=== PATIENT | female | born 2000 | race Caucasian/White ===

== ENCOUNTER 2023-01-11 15:51 | Outpatient (CLI) | payer OTHER | END 2023-01-11 16:48 | disposition home or self-care (01) | LOC: PRENATAL 15:51 | PROVIDERS: ATTEND Obstetrics & Gynecology Maternal & Fetal Medicine | DX: O36.80X0 Pregnancy with inconclusive fetal viability, not applicable or unspecified (principal); Z36.9 Encounter for antenatal screening, unspecified; Z36.82 Encounter for antenatal screening for nuchal translucency; O99.280 Endocrine, nutritional and metabolic diseases complicating pregnancy, unspecified trimester; Z3A.12 12 weeks gestation of pregnancy ==

== ENCOUNTER 2023-03-08 15:59 | Outpatient (CLI) | payer OTHER | END 2023-03-08 16:47 | disposition home or self-care (01) | LOC: PRENATAL 15:59 | PROVIDERS: ATTEND Obstetrics & Gynecology Maternal & Fetal Medicine | DX: O35.3XX0 Maternal care for (suspected) damage to fetus from viral disease in mother, not applicable or unspecified (principal); O99.280 Endocrine, nutritional and metabolic diseases complicating pregnancy, unspecified trimester; O34.219 Maternal care for unspecified type scar from previous cesarean delivery; O44.00 Complete placenta previa NOS or without hemorrhage, unspecified trimester; Z3A.20 20 weeks gestation of pregnancy ==

== ENCOUNTER → 2023-06-02 10:32 | Outpatient (CLI) | payer OTHER | END | disposition home or self-care (01) | LOC: PRENATAL 10:32 | PROVIDERS: ATTEND Obstetrics & Gynecology Maternal & Fetal Medicine | DX: O26.849 Uterine size-date discrepancy, unspecified trimester (principal); O36.8199 Decreased fetal movements, unspecified trimester, other fetus; O34.219 Maternal care for unspecified type scar from previous cesarean delivery; Z3A.37 37 weeks gestation of pregnancy ==

== ENCOUNTER 2023-06-02 16:03 | Inpatient (IN) | payer OTHER ==
[~2023-06-02] VITALS: Ht 152.4 cm; Wt 72.6 kg
[2023-06-02] MEDS ORDERED: BETAMETHASONE ACETATE,SOD PHOS 30 MG/5 ML ML ONE (16:44)
[2023-06-02] MEDS ORDERED: MAGNESIUM SULFATE IN WATER 0.04 GM/ML IV.SOLN IV ONE (17:14)
[2023-06-02] MEDS ORDERED: MAGNESIUM SULFATE IN WATER 4 GM/100 ML PIGGYBACK IV ONE (17:14)
[2023-06-02 17:40] LABS: PH,URINE 5.5 (5.0-8.0); URINE APPEARANCE Clear; URINE BILIRRUBIN Negative (NEGATIVE); URINE BLOOD Negative; URINE COLOR Yellow; URINE GLUCOSE Negative (NEGATIVE); URINE LEUKOCYTE Trace; URINE NITRATE Negative; URINE PROTEIN 30 (NEGATIVE)
[2023-06-02 17:40] LABS: HEMATOCRIT 34.7 % (36.0-45.00); HEMOGLOBIN 11.2 g/dL (12.0-15.00); MEAN CELL VOLUME 78.4 fL (80.00-100.00); MEAN CORPUSCULAR HEMOGLOBIN 25.4 pg (27.00-32.0); MEAN CORPUSCULAR HGB CONC 32.3 g/dl (32.0-36.0); PLATELET COUNT 384 K/uL (150-450); RED BLOOD COUNT 4.42 M/uL (4.00-6.00); RED CELL DISTRIBUTION WIDTH 15.8 % (11.5-14.5)
[2023-06-02 17:43] LABS: URINE BACTERIA 243.1 uL (0.0-1933); URINE EPITHELIAL CELLS 37.3 uL (0.0-38.8); URINE WBC 19.3 uL (0.0-23.2)
[2023-06-02 17:59] LABS: URINE RBC 1.5 uL (0.0-20.8)
[2023-06-02 18:02] LABS: INR 0.97; PARTIAL THROMBOPLASTIN TIME 25.7 SECONDS (22.0-34.0); PROTHROMBIN TIME 10.2 SECONDS (9.0-11.5)
[2023-06-02 18:36] LABS: ALBUMIN 2.8 gm/dL (3.4-5.0); ALKALINE PHOSPHATASE 167 U/L (50-136); ALT/SGPT 15 U/L (12-78); ANION GAP 11 (10.0-20.0); AST/SGOT 15 U/L (15-37); BILIRUBIN TOTAL 0.52 mg/dL (0.3-1.2); BLOOD UREA NITROGEN 10 mg/dL (7-18); BUN CREA RATIO 21 (7.0-25.0); CALCIUM 8.8 mg/dL (8.5-10.1); CARBON DIOXIDE 23 mEq/L (21-32); CHLORIDE 108 mmol/L (98-107); CREATININE SERUM 0.47 mg/dL (0.55-1.02); GLUCOSE FASTING 76 mg/dL (65-100); OSMOLALITY SERUM 273 MOSM/KG (275-295); POTASSIUM 4.38 mEq/L (3.5-5.1); SODIUM 138 mmol/L (136-145); TOTAL PROTEIN 6.8 gm/dL (6.4-8.2)
[2023-06-02 18:41] LABS: TSH < 0.005 uIU/mL (0.358-3.74)
[2023-06-02] MEDS ORDERED: RINGERS SOLUTION,LACTATED 1,000 ML IV SCH (19:15)
[2023-06-02] MEDS ORDERED: MAGNESIUM SULFATE IN WATER 100 ML IV SCH (19:15)
[2023-06-02] MEDS ORDERED: LABETALOL HCL 200 MG TABLET PO SCH (19:15)
[2023-06-02] MEDS ORDERED: BETAMETHASONE ACETATE,SOD PHOS 30 MG/5 ML ML IM ONE (19:15)
[2023-06-02] MEDS ORDERED: MAGNESIUM SULFATE IN WATER 500 ML IV SCH (19:15)
[2023-06-02] MEDS ORDERED: AZITHROMYCIN 500 MG in 0.9 % SODIUM CHLORIDE 250 ML IV SCH (20:43)
[2023-06-02] MEDS ORDERED: CEFAZOLIN SODIUM 1,000 MG VIAL IV SCH (22:15)
[2023-06-02] MEDS ORDERED: AMPICILLIN SODIUM 2,000 MG VIAL IV STA (22:17)
[2023-06-03] MEDS ORDERED: AMPICILLIN SODIUM 1,000 MG VIAL IV SCH (01:00)
[2023-06-03] MEDS ORDERED: BETAMETHASONE ACETATE,SOD PHOS 30 MG/5 ML ML IM ONE (04:50)
[2023-06-03] MEDS ORDERED: ERYTHROMYCIN BASE 3.5 GM OINT...G. OP ONE (07:12)
[2023-06-03] MEDS ORDERED: OXYTOCIN 10 UNITS/ML VIAL ONE (07:12)
[2023-06-03] MEDS ORDERED: AZITHROMYCIN 500 MG VIAL IV ONE (07:26)
[2023-06-03] MEDS ORDERED: MEPERIDINE HCL/PF 50 MG/ML VIAL IM PRN (09:00)
[2023-06-03] MEDS ORDERED: METHIMAZOLE 10 MG TABLET PO SCH (09:00)
[2023-06-03] MEDS ORDERED: PROMETHAZINE HCL 50 MG/ML AMPUL IM PRN (09:00)
[2023-06-03] MEDS ORDERED: ONDANSETRON HCL 2 MG/ML VIAL ONE (09:32)
[2023-06-03] MEDS ORDERED: MAGNESIUM SULFATE IN WATER 0.04 GM/ML IV.SOLN IV ONE (09:35)
[2023-06-03] MEDS ORDERED: ERYTHROMYCIN BASE 1 GM TUBE OP ONE (09:45)
[2023-06-03] MEDS ORDERED: OXYTOCIN 10 UNITS/ML VIAL IV ONE (09:45)
[2023-06-03] MEDS ORDERED: AMPICILLIN SODIUM 1,000 MG VIAL ONE (10:37)
[2023-06-04 01:01] LABS: HEMATOCRIT 31.1 % (36.0-45.00); MEAN CELL VOLUME 79.1 fL (80.00-100.00); MEAN CORPUSCULAR HEMOGLOBIN 25.5 pg (27.00-32.0); MEAN CORPUSCULAR HGB CONC 32.2 g/dl (32.0-36.0); PLATELET COUNT 398 K/uL (150-450); RED BLOOD COUNT 3.93 M/uL (4.00-6.00); RED CELL DISTRIBUTION WIDTH 16.1 % (11.5-14.5)
[2023-06-04] MEDS ORDERED: OxyCODONE HCL/APAP UD (PERCOCET) PO PRN (10:30)
[2023-06-05] MEDS ORDERED: DOCUSATE CALCIUM 240 MG CAPSULE PO SCH (09:00)
[2023-06-05] MEDS ORDERED: LABETALOL HCL 100 MG TABLET PO STA (18:44)
[2023-06-05] MEDS ORDERED: IBUprofen 600 MG TABLET PO PRN (18:45)
[2023-06-06] MEDS ORDERED: IBUPROFEN800 MG PO (08:31)
[2023-06-06] MEDS ORDERED: TRANDATE300 MG PO (08:31)
[2023-06-06] MEDS ORDERED: METHIMAZOLE10 MG PO (08:31)
[2023-06-06] MEDS ORDERED: LABETALOL HCL 300 MG TABLET PO SCH (09:00)
== END 2023-06-06 10:48 | disposition home or self-care (01) | DRG 788 ==
LOC: OBS/DEL 16:03 → LDR 17:14 → OB/GYN 06-04 12:19
PROVIDERS: ADMIT Specialist; ATTEND Specialist
PROC: 4A1HXCZ Monitoring of Products of Conception, Cardiac Rate, External Approach (ICD-10-PCS; 2023-06-02)
PROC: 10D00Z1 Extraction of Products of Conception, Low, Open Approach (ICD-10-PCS; principal; 2023-06-03 07:00)
DX: O60.14X0 Preterm labor third trimester with preterm delivery third trimester, not applicable or unspecified (principal); O14.14 Severe pre-eclampsia complicating childbirth; O99.284 Endocrine, nutritional and metabolic diseases complicating childbirth; E03.9 Hypothyroidism, unspecified; O36.5930 Maternal care for other known or suspected poor fetal growth, third trimester, not applicable or unspecified; O34.211 Maternal care for low transverse scar from previous cesarean delivery; Z3A.32 32 weeks gestation of pregnancy; Z37.0 Single live birth

== ENCOUNTER 2024-04-14 23:29 | Emergency (ER) | payer OTHER ==
[~2024-04-14] VITALS: Ht 152.4 cm; Wt 63.5 kg
[~2024-04-14 23:29] MED LIST: IBUPROFEN800 MG PO; METHIMAZOLE10 MG PO; TRANDATE300 MG PO
[2024-04-15] MEDS ORDERED: CEFTRIAXONE SODIUM 1,000 MG VIAL IM ONE (00:30)
[2024-04-15 01:40] LABS: URINE APPEARANCE Cloudy; URINE BILIRRUBIN Negative (NEGATIVE); URINE BLOOD Negative; URINE COLOR Yellow; URINE GLUCOSE Negative (NEGATIVE); URINE KETONE Negative (NEGATIVE); URINE LEUKOCYTE Moderate; URINE NITRATE Negative; URINE PROTEIN Negative (NEGATIVE)
[2024-04-15 01:42] LABS: HEMOGLOBIN 10.8 g/dL (12.0-15.00); MEAN CELL VOLUME 69.4 fL (80.00-100.00); MEAN CORPUSCULAR HEMOGLOBIN 22.1 pg (27.00-32.0); MEAN CORPUSCULAR HGB CONC 31.8 g/dl (32.0-36.0); PLATELET COUNT 475 K/uL (150-450); RED BLOOD COUNT 4.89 M/uL (4.00-6.00)
[2024-04-15 01:45] LABS: URINE BACTERIA 2304.7 uL (0.0-1933); URINE EPITHELIAL CELLS 102.7 uL (0.0-38.8); URINE WBC 284.3 uL (0.0-23.2)
[2024-04-15 02:20] LABS: ALBUMIN 3.6 gm/dL (3.4-5.0); ALKALINE PHOSPHATASE 121 U/L (50-136); ALT/SGPT 23 U/L (12-78); ANION GAP 13 (10.0-20.0); AST/SGOT 24 U/L (15-37); BLOOD UREA NITROGEN 10 mg/dL (7-18); BUN CREA RATIO 16 (7.0-25.0); CALCIUM 9.1 mg/dL (8.5-10.1); CARBON DIOXIDE 23 mEq/L (21-32); CHLORIDE 108 mmol/L (98-107); CREATININE SERUM 0.61 mg/dL (0.55-1.02); GFR 121.54; GLUCOSE FASTING 99 mg/dL (65-100); OSMOLALITY SERUM 277 MOSM/KG (275-295); POTASSIUM 4.83 mEq/L (3.5-5.1); SODIUM 139 mmol/L (136-145); TOTAL PROTEIN 7.6 gm/dL (6.4-8.2)
[2024-04-15 02:22] LABS: URINE RBC 1.4 uL (0.0-20.8)
[2024-04-15 02:23] LABS: HCG QUANTITATIVE < 1 mUI/mL (1-3)
[2024-04-15] MEDS ORDERED: CEPHALEXIN500 M1 PO (02:36)
== END 2024-04-15 03:02 | disposition home or self-care (01) ==
LOC: ER 23:31
PROVIDERS: General Practice
DX: N39.0 Urinary tract infection, site not specified (principal); Z20.822 Contact with and (suspected) exposure to COVID-19